=== PATIENT | female | born 1995 | race Caucasian/White ===

== ENCOUNTER 2017-06-29 23:38 | Emergency (ER) | payer BC, OTHER ==
[~2017-06-29] VITALS: Ht 165.1 cm; Wt 74.5 kg
[2017-06-30 00:59] LABS: MUCUS, URINE RFX SMALL (NEGATIVE); SPECIFIC GRAVITY UR AUTO RFX 1.009 (1.002-1.035); SQUAM EPITHELIAL CELL UR AURFX 0 /HPF (0-6)
[2017-06-30] MEDS ORDERED: PYRI1TAB5 PO (01:24)
[2017-06-30] MEDS ORDERED: CIPR-249 PO (01:24)
[2017-06-30] MEDS ORDERED: PHENAZOPYRIDINE 100 MG TAB PO ONE (01:30)
[2017-06-30] MEDS ORDERED: CIPROFLOXACIN 500 MG TAB PO ONE (01:30)
[2017-06-30 01:33] VITALS: BP 132/73
== END 2017-06-30 01:34 | disposition home or self-care (01) ==
LOC: M ED 23:38
DX: N30.00 Acute cystitis without hematuria (principal)